=== PATIENT | male | born 1975 | race Caucasian/White ===

== ENCOUNTER 2017-04-20 00:17 | Emergency (ER) | payer SELFPAY ==
[~2017-04-20] VITALS: Ht 172.7 cm; Wt 86.0 kg
[2017-04-20] MEDS ORDERED: BACITRACIN ZINC OINT UDPKT TOP ONE (01:00)
[2017-04-20] MEDS ORDERED: TETANUS, DIPHTHERIA, PERTUSSIS VAC/PF 0.5ML (>7YR OLD) IM ONE (01:00)
[2017-04-20 05:52] VITALS: BP 112/74
== END 2017-04-20 05:53 | disposition home or self-care (01) ==
LOC: ER 00:17
DX: S02.82XA Fracture of other specified skull and facial bones, left side, initial encounter for closed fracture (principal); S01.81XA Laceration without foreign body of other part of head, initial encounter; Y04.0XXA Assault by unarmed brawl or fight, initial encounter; Y93.89 Activity, other specified; Y92.488 Other paved roadways as the place of occurrence of the external cause
CPT/HCPCS: 12011; 70450; 70486; 90471; 90715; 99284; A4217; Z7610